=== PATIENT | female | born 1985 | race Caucasian/White ===

== ENCOUNTER 2017-09-02 18:16 | Emergency (ER) | payer MEDICAID, OTHER ==
[~2017-09-02] VITALS: Ht 154.9 cm; Wt 82.0 kg
[~2017-09-02 18:16] MED LIST: ALBUTEROL
[2017-09-02] MEDS ORDERED: MORPHINE SULFATE 4 MG/ML CPJ (NOT FOR IM USE) IV STA (20:46)
[2017-09-02] MEDS ORDERED: SODIUM CHLORIDE 0.9% 1,000 ML IV ONE (20:46)
[2017-09-02] MEDS ORDERED: ONDANSETRON HCL 4MG/2ML VIAL IV STA (20:46)
[2017-09-02 21:10] LABS: BASOPHILS % 0.9 % (0.0-2.0); HEMATOCRIT. 36.2 % (36.0-48.0); HEMOGLOBIN. 11.3 g/dL (12.0-16.0); MEAN CORPUSCULAR HEMOGLOBIN 19.7 pg (28.0-32.0); MEAN CORPUSCULAR VOLUME 62.7 fL (81.0-99.0); MEAN PLATELET VOLUME 8.8 fl (7.4-10.4); MONOCYTES % 5.9 % (2.0-8.0); NEUTROPHILS % 65.2 % (40.0-76.0); PLATELET 265 x1000/uL (130-400); RED BLOOD CELL COUNT 5.77 mill/uL (4.2-5.4); RED CELL DISTRIBUTION WIDTH 16.4 % (11.6-14.6)
[2017-09-02 21:15] LABS: INR 1.1; PROTHROMBIN TIME 11.7 sec (9.4-11.6)
[2017-09-02 21:22] LABS: CARBON DIOXIDE 26 mEq/L (21-32); CHLORIDE 105 mEq/L (98-107)
[2017-09-02 21:26] LABS: HCG SCREEN NEGATIVE
[2017-09-02 21:49] LABS: PLATELET ESTIMATE NORMAL
[2017-09-02] MEDS ORDERED: IOHEXOL-300 100 ML BOTTLE ONE (22:05)
[2017-09-03 00:25] LABS: CLARITY URINE CLEAR (CLEAR); COLOR URINE YELLOW (YELLOW); KETONES URINE NEGATIVE (NEGATIVE); LEUKOCYTE ESTERASE URINE NEGATIVE (NEGATIVE); NITRITE URINE NEGATIVE (NEGATIVE); OCCULT BLOOD URINE NEGATIVE (NEGATIVE); PH URINE 6.5 (4.5-8.0); PROTEIN URINE NEGATIVE (NEGATIVE); UROBILINOGEN URINE 0.2 E.U./dL (0.2-1.0)
[2017-09-03 00:30] VITALS: BP 110/65
[2017-09-03] MEDS ORDERED: KETOROLAC 30MG/ML VIAL IV ONE (00:30)
== END 2017-09-03 00:54 | disposition home or self-care (01) ==
LOC: ER 18:16
DX: N83.201 Unspecified ovarian cyst, right side (principal); F17.200 Nicotine dependence, unspecified, uncomplicated
CPT/HCPCS: 36415; 74177; 80053; 81003; 83690; 84703; 85025; 85610; 96361; 96374; 96375; 99285; J1885; J2270; J2405; J7030; Q9967; Z7610

== ENCOUNTER 2018-04-04 00:16 | Emergency (ER) | payer SELFPAY ==
[~2018-04-04] VITALS: Ht 154.9 cm; Wt 81.0 kg
[2018-04-04 00:34] VITALS: BP 118/81
[2018-04-04 02:37] LABS: CLARITY URINE TURBID (CLEAR); COLOR URINE YELLOW (YELLOW); KETONES URINE TRACE (NEGATIVE); LEUKOCYTE ESTERASE URINE 2+ (NEGATIVE); NITRITE URINE NEGATIVE (NEGATIVE); OCCULT BLOOD URINE 3+ (NEGATIVE); PH URINE 5.5 (4.5-8.0); PROTEIN URINE 2+ (NEGATIVE); SPECIFIC GRAVITY URINE 1.034 (1.005-1.030)
== END 2018-04-04 02:50 | disposition left against medical advice (07) ==
LOC: ER 00:16
DX: N93.9 Abnormal uterine and vaginal bleeding, unspecified (principal); Z32.02 Encounter for pregnancy test, result negative; Z53.21 Procedure and treatment not carried out due to patient leaving prior to being seen by health care provider
CPT/HCPCS: 81003; 81025; 87077; 87086; 99281

== ENCOUNTER 2018-10-26 23:08 | Emergency (ER) | payer MEDICAID ==
[~2018-10-26] VITALS: Ht 154.9 cm; Wt 73.0 kg
[2018-10-27] MEDS ORDERED: METHYLPREDNISOLONE SOD SUCC 125 MG/2 ML VIAL IV ONE
[2018-10-27] MEDS ORDERED: FAMOTIDINE 20MG/2ML VIAL IV ONE
[2018-10-27] MEDS ORDERED: DIPHENHYDRAMINE 50MG/ML VIAL IV ONE
[2018-10-27 03:00] VITALS: BP 116/66
== END 2018-10-27 03:00 | disposition home or self-care (01) ==
LOC: ER 23:08
DX: T78.49XA Other allergy, initial encounter (principal); X58.XXXA Exposure to other specified factors, initial encounter; F17.200 Nicotine dependence, unspecified, uncomplicated; E78.00 Pure hypercholesterolemia, unspecified
CPT/HCPCS: 96374; 96375; 99283; J1200; J2930; J3490

== ENCOUNTER 2019-01-09 12:04 | Emergency (ER) | payer MEDICAID ==
[~2019-01-09] VITALS: Ht 154.9 cm; Wt 79.5 kg
[2019-01-09] MEDS ORDERED: metformin (12:15)
[2019-01-09] MEDS ORDERED: HYDROCODONE/ACETAMINOPHEN 5/325MG TABLET PO ONE (13:00)
[2019-01-09] MEDS ORDERED: FLUORESCEIN SODIUM 1MG/STRIP OP ONE (13:00)
[2019-01-09 14:19] VITALS: BP 131/63
== END 2019-01-09 14:23 | disposition home or self-care (01) ==
LOC: ER 12:04
DX: S00.83XA Contusion of other part of head, initial encounter (principal); R42 Dizziness and giddiness; Y04.2XXA Assault by strike against or bumped into by another person, initial encounter; Y93.89 Activity, other specified; Y92.89 Other specified places as the place of occurrence of the external cause
CPT/HCPCS: 81025; 99283

== ENCOUNTER 2019-03-17 00:30 | Emergency (ER) | payer MEDICAID ==
[~2019-03-17] VITALS: Ht 167.6 cm; Wt 84.0 kg
[~2019-03-17 00:30] MED LIST changes: -ALBUTEROL; +metformin
[2019-03-17] MEDS ORDERED: ONDANSETRON HCL 4MG/2ML INJ IV STA (01:32)
[2019-03-17] MEDS ORDERED: SODIUM CHLORIDE 0.9% 1,000 ML IV ONE (01:32)
[2019-03-17 02:20] LABS: BASOPHILS % 0.9 % (0.0-2.0); EOSINOPHILS % 1.6 % (0.0-5.0); HEMATOCRIT. 35.9 % (36.0-48.0); HEMOGLOBIN. 11.2 g/dL (12.0-16.0); LYMPHOCYTES % 28.7 % (20.0-50.0); MEAN CORPUSCULAR HEMOGLOBIN 19.5 pg (28.0-32.0); MEAN CORPUSCULAR VOLUME 62.2 fL (81.0-99.0); MEAN PLATELET VOLUME 9.3 fl (7.4-10.4); MONOCYTES % 4.2 % (2.0-8.0); NEUTROPHILS % 64.6 % (40.0-76.0); PLATELET 271 x1000/uL (130-400); RED BLOOD CELL COUNT 5.77 mill/uL (4.2-5.4); RED CELL DISTRIBUTION WIDTH 16.2 % (11.6-14.6)
[2019-03-17 02:22] LABS: CHLORIDE 107 mEq/L (98-107)
[2019-03-17 02:32] LABS: PLATELET ESTIMATE NORMAL
[2019-03-17] MEDS ORDERED: INSULIN REGULAR (HUMULIN R) 300UNITS/3ML SUBCUT ONE (03:30)
[2019-03-17 05:43] VITALS: BP 101/58
== END 2019-03-17 05:46 | disposition home or self-care (01) ==
LOC: ER 00:30
DX: T51.0X1A Toxic effect of ethanol, accidental (unintentional), initial encounter (principal); G92 Toxic encephalopathy; E11.9 Type 2 diabetes mellitus without complications; E78.00 Pure hypercholesterolemia, unspecified; Z79.84 Long term (current) use of oral hypoglycemic drugs; Y92.018 Other place in single-family (private) house as the place of occurrence of the external cause
CPT/HCPCS: 36415; 80053; 81025; 82962; 85025; 96372; 96374; 99283; J1815; J2405; J7030

== ENCOUNTER 2020-02-28 19:44 | Emergency (ER) | payer MEDICAID | END 2020-02-28 20:00 | disposition left against medical advice (07) | LOC: ER 19:44 | DX: Z53.21 Procedure and treatment not carried out due to patient leaving prior to being seen by health care provider (principal) ==

== ENCOUNTER 2020-06-15 17:53 | Emergency (ER) | payer MEDICAID ==
[~2020-06-15] VITALS: Ht 152.4 cm; Wt 77.0 kg
[2020-06-15] MEDS ORDERED: SODIUM CHLORIDE 0.9% 1,000 ML IV ONE (18:45)
[2020-06-15 19:13] LABS: BASOPHILS % 0.9 % (0.0-2.0); HEMATOCRIT. 30.1 % (36.0-48.0); HEMOGLOBIN. 9.4 g/dL (12.0-16.0); LYMPHOCYTES % 26.6 % (20.0-50.0); MEAN CORPUSCULAR HEMOGLOBIN 18.8 pg (28.0-32.0); MEAN CORPUSCULAR VOLUME 60.1 fL (81.0-99.0); MEAN PLATELET VOLUME 9.2 fl (7.4-10.4); MONOCYTES % 5.9 % (2.0-8.0); NEUTROPHILS % 65.6 % (40.0-76.0); PLATELET 277 x1000/uL (130-400); RED BLOOD CELL COUNT 5.02 mill/uL (4.2-5.4); RED CELL DISTRIBUTION WIDTH 16.7 % (11.6-14.6)
[2020-06-15 19:14] LABS: CHLORIDE 102 mEq/L (98-107)
[2020-06-15 19:18] LABS: PROTHROMBIN TIME 10.9 sec (9.6-11.0)
[2020-06-15 19:51] LABS: PLATELET ESTIMATE NORMAL
[2020-06-15 23:30] VITALS: BP 122/78
== END 2020-06-15 23:35 | disposition home or self-care (01) ==
LOC: ER 17:53
DX: N83.292 Other ovarian cyst, left side (principal); N83.291 Other ovarian cyst, right side; D64.9 Anemia, unspecified; E11.65 Type 2 diabetes mellitus with hyperglycemia; Z79.84 Long term (current) use of oral hypoglycemic drugs
CPT/HCPCS: 36415; 76830; 76856; 80053; 81025; 85025; 85610; 96360; 99285; J7030